=== PATIENT | male | born 1990 | race Caucasian/White ===

== ENCOUNTER 2022-06-09 12:38 | Emergency (ER) | payer MEDICAID ==
[~2022-06-09] VITALS: Ht 177.8 cm; Wt 81.8 kg
[2022-06-09] MEDS ORDERED: CEPH-558 PO (14:08)
[2022-06-09 14:18] VITALS: BP 124/76
== END 2022-06-09 14:41 | disposition home or self-care (01) ==
LOC: EMS 12:41
DX: L03.031 Cellulitis of right toe (principal)
CPT/HCPCS: 99283; Z7502